=== PATIENT | male | born 1995 | race Caucasian/White ===

== ENCOUNTER 2018-04-02 18:26 | Emergency (ER) | payer OTHER ==
[~2018-04-02] VITALS: Ht 182.9 cm; Wt 104.3 kg
[2018-04-02 18:41] VITALS: BP 133/87
== END 2018-04-02 23:14 | disposition home or self-care (01) ==
LOC: ER 18:26
DX: S43.402A Unspecified sprain of left shoulder joint, initial encounter (principal); M25.571 Pain in right ankle and joints of right foot; R51 Headache; V43.53XA Car driver injured in collision with pick-up truck in traffic accident, initial encounter; Y93.89 Activity, other specified; Y99.8 Other external cause status; Y92.410 Unspecified street and highway as the place of occurrence of the external cause
CPT/HCPCS: 70450; 73030; 73600